=== PATIENT | male | born 1985 ===

== ENCOUNTER 2018-01-02 10:49 | Emergency (ER) | payer SELFPAY, OTHER ==
[2018-01-02] MEDS ORDERED: traMADol HCl 50 MG TAB ONE (11:10)
--- NOTE | 2018-01-02 14:39 | CT ---
CT BRAIN WITHOUT CONTRAST: 01/02/2018 FINDINGS: The ventricles are normal in size with no shift. No intracranial bleeding, extraaxial hematoma, joshua a, or mass is seen. The skull appears intact. The sphenoid sinus and mastoid air cells are clear. IMPRESSION: No acute intracranial findings. POS: HOME
--- NOTE | 2018-01-02 14:42 | CT ---
CT CERVICAL SPINE: 01/02/2018 TECHNIQUE: A spiral CT of the cervical spine was done following trauma. Axial slices were acquired, and then co manan and sagittal reconstructions were done. FINDINGS: No fracture, dislocation, or soft tissue swelling is seen. The C1 to dens distance is normal, and th e soft tissues are normal in thickness. There is no significant foraminal or central canal stenosis. The surrounding soft tissue structures are unremarkable. IMPRESSION: No acute traumatic findings. POS: HOME
--- NOTE | 2018-01-02 14:46 | RAD ---
LEFT SHOULDER 3 VIEWS: DATE: 01/02/2018. FINDINGS: No fracture or dislocation was seen. There is evidence of prior rotator cuff surgery. A couple of m etallic fragments medial to the obvious surgical metal are probably fragments from that surgery. The AC joint is not widened. The adjacent ribs appeared intact. IMPRESSION: No acute bony findings. POS: HOME
== END 2018-01-02 11:45 | disposition home or self-care (01) ==
LOC: BURERS 10:49
DX: T70.0XXA Otitic barotrauma, initial encounter (principal); S40.012A Contusion of left shoulder, initial encounter; F17.210 Nicotine dependence, cigarettes, uncomplicated; W22.8XXA Striking against or struck by other objects, initial encounter
CPT/HCPCS: 70450; 72125